=== PATIENT | male | born 1960 | race African-American/Black ===

== ENCOUNTER 2024-10-16 03:32 | Inpatient (IN) | payer OTHER ==
[2024-10-16] MEDS ORDERED: Aspirin Chewable 81 MG TAB ONE (06:12)
[2024-10-16 06:34] LABS: #Basophils Less than 0.03 10x3/uL (0.0-0.2); #Eosinophils 0.25 10x3/uL (0.0-0.7); #Monocytes 0.58 10x3/uL (0.11-0.59); #Neutrophils 5.40 10x3/uL (1.40-6.50); %Basophils 0.1 % (0.0-1.0); %Eosinophils 3.3 % (0.0-10.0); %Lymphocytes 16.4 % (21.0-51.0); %Monocytes 7.7 % (0.0-10.0); %Neutrophils 72.2 % (42.0-75.0); Hematocrit 41.5 % (42.0-52.0); Hemoglobin 14.0 g/dL (14.0-18.0); Mean Corpuscular Hemoglobin 32.2 pg (27.0-31.0); Mean Corpuscular Volume 95.4 fL (78.0-98.0); Platelet Count 225 10x3/uL (130-400); Red Blood Cell (RBC) Count 4.35 mill/uL (4.70-6.10); White Blood Cell (WBC) Count 7.49 10x3/uL (4.8-10.8)
[2024-10-16 06:54] LABS: ALT (SGPT) 57 U/L (Less than 45); AST (SGOT) 51 U/L (11-34); Albumin 3.0 g/dL (3.1-4.5); Alkaline Phosphatase 71 U/L (40-110); Anion Gap 9 mmol/L (10-20); BUN (Urea Nitrogen) 11 mg/dL (8.4-25.7); Bilirubin, Total 1.0 mg/dL (0.3-1.2); Calc. Creatinine Clearance 0 mL/min (70-130); Calcium 8.1 mg/dL (7.8-10.44); Carbon Dioxide 22 mmol/L (23-31); Chloride 111 mmol/L (98-107); Globulin 3.9 g/dL (2.4-3.5); Glucose 116 mg/dL (80-115); Potassium 4.4 mmol/L (3.5-5.1); Sodium 138 mmol/L (136-145)
[2024-10-16 07:00] LABS: Troponin I 0.015 ng/mL (< 0.028)
[2024-10-16] MEDS ORDERED: Furosemide 40 MG (4 mL) VIAL ONE (07:03)
[2024-10-16] MEDS ORDERED: Acetaminophen 325 MG TAB PO PRN (09:15)
[2024-10-16] MEDS ORDERED: Ondansetron PF 4 MG/2 ML Vial IVP PRN (09:16)
[2024-10-16 09:44] VITALS: BMI 18.3
[2024-10-16] MEDS ORDERED: Melatonin 3 MG TAB PO PRN (09:44)
[2024-10-16] MEDS ORDERED: Calcium Carbonate 500 MG ChewTAB PO PRN (09:44)
[2024-10-16] MEDS: Spironolactone 25 MG TAB PO SCH (10:02)
[2024-10-16] MEDS: Apixaban 5 MG TAB PO SCH ×2 (10:02→20:10)
[2024-10-16 10:39] LABS: Troponin I 0.022 ng/mL (< 0.028)
[2024-10-16] MEDS: Furosemide 40 MG (4 mL) VIAL SLOW IVP SCH (15:03)
[2024-10-16 15:33] LABS: Cocaine Metabolite Screen PRELIM POSITIVE (Negative); THC/Cannabinoid Screen PRELIM POSITIVE (Negative); Tricyclic Screen Negative (Negative)
[2024-10-16] MEDS: Carvedilol 3.125 MG TAB PO SCH (17:55)
[2024-10-17 04:43] LABS: #Basophils Less than 0.03 10x3/uL (0.0-0.2); #Eosinophils 0.25 10x3/uL (0.0-0.7); #Monocytes 0.67 10x3/uL (0.11-0.59); #Neutrophils 4.43 10x3/uL (1.40-6.50); %Basophils 0.3 % (0.0-1.0); %Eosinophils 3.6 % (0.0-10.0); %Lymphocytes 22.8 % (21.0-51.0); %Monocytes 9.6 % (0.0-10.0); %Neutrophils 63.4 % (42.0-75.0); Hematocrit 44.7 % (42.0-52.0); Hemoglobin 15.3 g/dL (14.0-18.0); Mean Corpuscular Hemoglobin 32.0 pg (27.0-31.0); Mean Corpuscular Volume 93.5 fL (78.0-98.0); Platelet Count 246 10x3/uL (130-400); Red Blood Cell (RBC) Count 4.78 mill/uL (4.70-6.10); White Blood Cell (WBC) Count 6.98 10x3/uL (4.8-10.8)
[2024-10-17 05:03] LABS: Anion Gap 13 mmol/L (10-20); BUN (Urea Nitrogen) 18 mg/dL (8.4-25.7); Calc. Creatinine Clearance 78 mL/min (70-130); Calcium 8.6 mg/dL (7.8-10.44); Carbon Dioxide 22 mmol/L (23-31); Chloride 104 mmol/L (98-107); Glucose 101 mg/dL (80-115); Potassium 3.7 mmol/L (3.5-5.1); Sodium 135 mmol/L (136-145)
[2024-10-17] MEDS: Aspirin Chewable 81 MG TAB PO SCH (07:57)
[2024-10-17] MEDS: Acetaminophen 500 MG TAB PO PRN (07:57)
[2024-10-17] MEDS: Spironolactone 25 MG TAB PO SCH (07:57)
[2024-10-17] MEDS: Senokot S 8.6-50 MG TAB PO PRN (09:53)
[2024-10-18 05:33] LABS: #Basophils 0.04 10x3/uL (0.0-0.2); #Eosinophils 0.33 10x3/uL (0.0-0.7); #Monocytes 0.73 10x3/uL (0.11-0.59); #Neutrophils 3.49 10x3/uL (1.40-6.50); %Basophils 0.6 % (0.0-1.0); %Eosinophils 5.3 % (0.0-10.0); %Lymphocytes 26.2 % (21.0-51.0); %Monocytes 11.7 % (0.0-10.0); %Neutrophils 55.9 % (42.0-75.0); Hematocrit 45.1 % (42.0-52.0); Hemoglobin 15.8 g/dL (14.0-18.0); Mean Corpuscular Hemoglobin 32.4 pg (27.0-31.0); Mean Corpuscular Volume 92.6 fL (78.0-98.0); Platelet Count 254 10x3/uL (130-400); Red Blood Cell (RBC) Count 4.87 mill/uL (4.70-6.10); White Blood Cell (WBC) Count 6.25 10x3/uL (4.8-10.8)
[2024-10-18 05:58] LABS: Anion Gap 14 mmol/L (10-20); BUN (Urea Nitrogen) 25 mg/dL (8.4-25.7); Calc. Creatinine Clearance 66 mL/min (70-130); Calcium 8.8 mg/dL (7.8-10.44); Carbon Dioxide 23 mmol/L (23-31); Chloride 102 mmol/L (98-107); Glucose 121 mg/dL (80-115); Potassium 3.9 mmol/L (3.5-5.1); Sodium 135 mmol/L (136-145)
[2024-10-18] MEDS: Losartan 25 MG TAB PO SCH (08:42)
[2024-10-18 09:50] VITALS: BMI 16.5
[2024-10-19 05:07] LABS: #Basophils 0.03 10x3/uL (0.0-0.2); #Eosinophils 0.32 10x3/uL (0.0-0.7); #Monocytes 0.79 10x3/uL (0.11-0.59); #Neutrophils 3.48 10x3/uL (1.40-6.50); %Basophils 0.5 % (0.0-1.0); %Eosinophils 5.1 % (0.0-10.0); %Lymphocytes 25.8 % (21.0-51.0); %Monocytes 12.6 % (0.0-10.0); %Neutrophils 55.5 % (42.0-75.0); Hematocrit 45.9 % (42.0-52.0); Hemoglobin 15.4 g/dL (14.0-18.0); Mean Corpuscular Hemoglobin 32.2 pg (27.0-31.0); Mean Corpuscular Volume 95.8 fL (78.0-98.0); Platelet Count 200 10x3/uL (130-400); Red Blood Cell (RBC) Count 4.79 mill/uL (4.70-6.10); White Blood Cell (WBC) Count 6.27 10x3/uL (4.8-10.8)
[2024-10-19 05:29] LABS: Anion Gap 14 mmol/L (10-20); BUN (Urea Nitrogen) 27 mg/dL (8.4-25.7); Calc. Creatinine Clearance 57 mL/min (70-130); Calcium 8.8 mg/dL (7.8-10.44); Carbon Dioxide 21 mmol/L (23-31); Chloride 100 mmol/L (98-107); Glucose 136 mg/dL (80-115); Potassium 4.3 mmol/L (3.5-5.1); Sodium 131 mmol/L (136-145)
[2024-10-19 07:41] VITALS: TEMP 97.9
[2024-10-19 10:21] VITALS: BP 124/59
== END 2024-10-19 11:11 | disposition home or self-care (01) | DRG 291 ==
LOC: ERS 03:32 → OBS 09:09
PROVIDERS: ADMIT Hospitalist; ATTEND Internal Medicine
DX: I11.0 Hypertensive heart disease with heart failure (principal); E43 Unspecified severe protein-calorie malnutrition; I50.43 Acute on chronic combined systolic (congestive) and diastolic (congestive) heart failure; Z68.1 Body mass index [BMI] 19.9 or less, adult; J44.9 Chronic obstructive pulmonary disease, unspecified; E78.5 Hyperlipidemia, unspecified; F19.10 Other psychoactive substance abuse, uncomplicated; Z79.01 Long term (current) use of anticoagulants; Z90.49 Acquired absence of other specified parts of digestive tract; Z98.890 Other specified postprocedural states; F17.210 Nicotine dependence, cigarettes, uncomplicated; I42.9 Cardiomyopathy, unspecified; Z95.810 Presence of automatic (implantable) cardiac defibrillator; E88.09 Other disorders of plasma-protein metabolism, not elsewhere classified
CPT/HCPCS: 36415; 71045; 80048; 80053; 80306; 83880; 84484; 85025; 93005; 93798; 96374; J1940

== ENCOUNTER 2024-11-30 02:05 | Inpatient (IN) | payer OTHER ==
[2024-11-30 02:53] LABS: #Basophils Less than 0.03 10x3/uL (0.0-0.2); #Eosinophils 0.07 10x3/uL (0.0-0.7); #Monocytes 0.68 10x3/uL (0.11-0.59); #Neutrophils 7.81 10x3/uL (1.40-6.50); %Basophils 0.2 % (0.0-1.0); %Eosinophils 0.7 % (0.0-10.0); %Lymphocytes 9.5 % (21.0-51.0); %Monocytes 7.1 % (0.0-10.0); %Neutrophils 82.0 % (42.0-75.0); Hematocrit 42.9 % (42.0-52.0); Hemoglobin 13.9 g/dL (14.0-18.0); Mean Corpuscular Hemoglobin 32.2 pg (27.0-31.0); Mean Corpuscular Volume 99.3 fL (78.0-98.0); Platelet Count 220 10x3/uL (130-400); Red Blood Cell (RBC) Count 4.32 mill/uL (4.70-6.10); White Blood Cell (WBC) Count 9.54 10x3/uL (4.8-10.8)
[2024-11-30 03:16] LABS: ALT (SGPT) 47 U/L (Less than 45); AST (SGOT) 50 U/L (11-34); Albumin 3.5 g/dL (3.1-4.5); Alkaline Phosphatase 72 U/L (40-110); Anion Gap 14 mmol/L (10-20); BUN (Urea Nitrogen) 15 mg/dL (8.4-25.7); Bilirubin, Total 1.3 mg/dL (0.3-1.2); Calc. Creatinine Clearance 0 mL/min (70-130); Calcium 9.1 mg/dL (7.8-10.44); Carbon Dioxide 21 mmol/L (23-31); Chloride 106 mmol/L (98-107); Globulin 3.8 g/dL (2.4-3.5); Glucose 107 mg/dL (80-115); Lipase 8 U/L (8-78); Potassium 4.6 mmol/L (3.5-5.1); Sodium 136 mmol/L (136-145)
[2024-11-30] MEDS ORDERED: Ondansetron PF 4 MG/2 ML Vial IVP PRN (04:45)
[2024-11-30] MEDS ORDERED: Electrolyte Replacement Protocol 1 EACH FS PRN (04:45)
[2024-11-30] MEDS ORDERED: Acetaminophen 325 MG TAB PO PRN (04:45)
[2024-11-30] MEDS ORDERED: Calcium Carbonate 500 MG ChewTAB PO PRN (04:45)
[2024-11-30] MEDS ORDERED: Albuterol 200 PUFF INH INH PRN (04:46)
[2024-11-30] MEDS ORDERED: Furosemide 20 MG (2 mL) VIAL ONE (05:08)
[2024-11-30] MEDS: Furosemide 40 MG (4 mL) VIAL SLOW IVP SCH (07:17)
[2024-11-30 08:34] LABS: Cocaine Metabolite Screen PRELIM POSITIVE (Negative); THC/Cannabinoid Screen Negative (Negative); Tricyclic Screen Negative (Negative)
[2024-11-30] MEDS: Aspirin Chewable 81 MG TAB PO SCH (08:48)
[2024-11-30] MEDS: Spironolactone 25 MG TAB PO SCH (08:48)
[2024-11-30] MEDS: Apixaban 5 MG TAB PO SCH (08:49)
[2024-11-30] MEDS: Carvedilol 3.125 MG TAB PO SCH (08:49)
[2024-11-30] MEDS: Losartan 25 MG TAB PO SCH (08:49)
[2024-11-30] MEDS: PNEUMOC 20-VAL CONJ-DIP CRM/PF 0.5 ML SYRINGE IM ONE (09:27)
[2024-11-30] MEDS: LevoFLOXacin 750 mg/D5W 750 MG in Premix 1 BAG IVPB SCH (09:38)
[2024-11-30] MEDS ORDERED: Iopamidol-370 76% 500 ML MDV (1 ML CHARGE) ONE (14:41)
[2024-12-01 04:21] LABS: #Basophils Less than 0.03 10x3/uL (0.0-0.2); #Eosinophils 0.19 10x3/uL (0.0-0.7); #Monocytes 0.72 10x3/uL (0.11-0.59); #Neutrophils 5.26 10x3/uL (1.40-6.50); %Basophils 0.3 % (0.0-1.0); %Eosinophils 2.4 % (0.0-10.0); %Lymphocytes 20.3 % (21.0-51.0); %Monocytes 9.2 % (0.0-10.0); %Neutrophils 67.4 % (42.0-75.0); Hematocrit 49.1 % (42.0-52.0); Hemoglobin 16.5 g/dL (14.0-18.0); Mean Corpuscular Hemoglobin 32.0 pg (27.0-31.0); Mean Corpuscular Volume 95.2 fL (78.0-98.0); Platelet Count 181 10x3/uL (130-400); Red Blood Cell (RBC) Count 5.16 mill/uL (4.70-6.10); White Blood Cell (WBC) Count 7.80 10x3/uL (4.8-10.8)
[2024-12-01 04:53] LABS: ALT (SGPT) 41 U/L (Less than 45); AST (SGOT) 48 U/L (11-34); Albumin 3.1 g/dL (3.1-4.5); Alkaline Phosphatase 60 U/L (40-110); Anion Gap 13 mmol/L (10-20); BUN (Urea Nitrogen) 21 mg/dL (8.4-25.7); Bilirubin, Total 1.6 mg/dL (0.3-1.2); Calc. Creatinine Clearance 56 mL/min (70-130); Calcium 9.5 mg/dL (7.8-10.44); Carbon Dioxide 25 mmol/L (23-31); Chloride 99 mmol/L (98-107); Globulin 4.3 g/dL (2.4-3.5); Glucose 112 mg/dL (80-115); Magnesium 2.2 mg/dL (1.6-2.6); Potassium 3.7 mmol/L (3.5-5.1); Sodium 133 mmol/L (136-145)
[2024-12-01] MEDS: predniSONE 20 MG TAB PO SCH (15:51)
[2024-12-01] MEDS ORDERED: Carvedilol 3.125 MG TAB PO SCH (17:00)
[2024-12-02 04:57] LABS: #Basophils Less than 0.03 10x3/uL (0.0-0.2); #Eosinophils Less than 0.03 10x3/uL (0.0-0.7); #Monocytes 0.58 10x3/uL (0.11-0.59); #Neutrophils 6.47 10x3/uL (1.40-6.50); %Basophils 0.1 % (0.0-1.0); %Eosinophils 0.0 % (0.0-10.0); %Lymphocytes 10.2 % (21.0-51.0); %Monocytes 7.3 % (0.0-10.0); %Neutrophils 81.9 % (42.0-75.0); Hematocrit 42.6 % (42.0-52.0); Hemoglobin 14.3 g/dL (14.0-18.0); Mean Corpuscular Hemoglobin 32.4 pg (27.0-31.0); Mean Corpuscular Volume 96.4 fL (78.0-98.0); Platelet Count 265 10x3/uL (130-400); Red Blood Cell (RBC) Count 4.42 mill/uL (4.70-6.10); White Blood Cell (WBC) Count 7.91 10x3/uL (4.8-10.8)
[2024-12-02 05:15] LABS: Anion Gap 13 mmol/L (10-20); BUN (Urea Nitrogen) 31 mg/dL (8.4-25.7); Calc. Creatinine Clearance 59 mL/min (70-130); Calcium 9.2 mg/dL (7.8-10.44); Carbon Dioxide 22 mmol/L (23-31); Chloride 106 mmol/L (98-107); Glucose 111 mg/dL (80-115); Potassium 4.0 mmol/L (3.5-5.1); Sodium 137 mmol/L (136-145)
[2024-12-02] MEDS: predniSONE 20 MG TAB PO SCH (08:02)
[2024-12-02] MEDS: Carvedilol 3.125 MG TAB PO SCH (15:50)
[2024-12-02] MEDS: Senokot S 8.6-50 MG TAB PO PRN (21:40)
[2024-12-03 04:46] LABS: #Basophils Less than 0.03 10x3/uL (0.0-0.2); #Eosinophils 0.05 10x3/uL (0.0-0.7); #Monocytes 1.08 10x3/uL (0.11-0.59); #Neutrophils 9.64 10x3/uL (1.40-6.50); %Basophils 0.2 % (0.0-1.0); %Eosinophils 0.4 % (0.0-10.0); %Lymphocytes 14.1 % (21.0-51.0); %Monocytes 8.6 % (0.0-10.0); %Neutrophils 76.3 % (42.0-75.0); Hematocrit 43.6 % (42.0-52.0); Hemoglobin 14.9 g/dL (14.0-18.0); Mean Corpuscular Hemoglobin 31.7 pg (27.0-31.0); Mean Corpuscular Volume 92.8 fL (78.0-98.0); Platelet Count 290 10x3/uL (130-400); Red Blood Cell (RBC) Count 4.70 mill/uL (4.70-6.10); White Blood Cell (WBC) Count 12.62 10x3/uL (4.8-10.8)
[2024-12-03 05:05] LABS: Anion Gap 15 mmol/L (10-20); BUN (Urea Nitrogen) 23 mg/dL (8.4-25.7); Calc. Creatinine Clearance 67 mL/min (70-130); Calcium 8.7 mg/dL (7.8-10.44); Carbon Dioxide 24 mmol/L (23-31); Chloride 100 mmol/L (98-107); Glucose 121 mg/dL (80-115); Magnesium 2.2 mg/dL (1.6-2.6); Potassium 3.6 mmol/L (3.5-5.1); Sodium 135 mmol/L (136-145)
[2024-12-04 04:43] LABS: #Basophils 0.03 10x3/uL (0.0-0.2); #Eosinophils 0.03 10x3/uL (0.0-0.7); #Monocytes 0.82 10x3/uL (0.11-0.59); #Neutrophils 7.78 10x3/uL (1.40-6.50); %Basophils 0.3 % (0.0-1.0); %Eosinophils 0.3 % (0.0-10.0); %Lymphocytes 16.8 % (21.0-51.0); %Monocytes 7.8 % (0.0-10.0); %Neutrophils 74.2 % (42.0-75.0); Hematocrit 42.7 % (42.0-52.0); Hemoglobin 13.9 g/dL (14.0-18.0); Mean Corpuscular Hemoglobin 31.6 pg (27.0-31.0); Mean Corpuscular Volume 97.0 fL (78.0-98.0); Platelet Count 302 10x3/uL (130-400); Red Blood Cell (RBC) Count 4.40 mill/uL (4.70-6.10); White Blood Cell (WBC) Count 10.48 10x3/uL (4.8-10.8)
[2024-12-04 05:14] LABS: Anion Gap 11 mmol/L (10-20); BUN (Urea Nitrogen) 24 mg/dL (8.4-25.7); Calc. Creatinine Clearance 67 mL/min (70-130); Calcium 8.5 mg/dL (7.8-10.44); Carbon Dioxide 24 mmol/L (23-31); Chloride 103 mmol/L (98-107); Glucose 104 mg/dL (80-115); Magnesium 2.2 mg/dL (1.6-2.6); Potassium 4.0 mmol/L (3.5-5.1); Sodium 134 mmol/L (136-145)
[2024-12-04 10:56] VITALS: BP 101/61; TEMP 97.6
== END 2024-12-04 13:23 | disposition home or self-care (01) | DRG 291 ==
LOC: ERS 02:05 → 2NO 04:47
PROVIDERS: ADMIT Student in an Organized Health Care Education/Training Program; ATTEND Internal Medicine
DX: I11.0 Hypertensive heart disease with heart failure (principal); I50.23 Acute on chronic systolic (congestive) heart failure; J96.01 Acute respiratory failure with hypoxia; J18.9 Pneumonia, unspecified organism; Z68.1 Body mass index [BMI] 19.9 or less, adult; F14.20 Cocaine dependence, uncomplicated; F17.210 Nicotine dependence, cigarettes, uncomplicated; Z96.653 Presence of artificial knee joint, bilateral; E78.5 Hyperlipidemia, unspecified; I42.9 Cardiomyopathy, unspecified; R63.6 Underweight; Z88.1 Allergy status to other antibiotic agents; Z95.810 Presence of automatic (implantable) cardiac defibrillator; Z90.49 Acquired absence of other specified parts of digestive tract; Z98.890 Other specified postprocedural states; Z79.82 Long term (current) use of aspirin; Z79.899 Other long term (current) drug therapy
CPT/HCPCS: 36415; 71045; 71275; 80048; 80053; 80306; 83690; 83735; 83880; 84484; 85025; 86141; 90471; 90677; 93005; 93306; 93798; 96374; G0009; J1940; J1956; J7030; J7512; Q9967

== ENCOUNTER 2025-02-06 02:57 | Inpatient (IN) | payer OTHER ==
[2025-02-06] MEDS ORDERED: Aspirin Chewable 81 MG TAB ONE (03:25)
[2025-02-06 03:28] LABS: #Basophils Less than 0.03 10x3/uL (0.0-0.2); #Eosinophils 0.19 10x3/uL (0.0-0.7); #Monocytes 0.66 10x3/uL (0.11-0.59); #Neutrophils 4.30 10x3/uL (1.40-6.50); %Basophils 0.3 % (0.0-1.0); %Eosinophils 2.8 % (0.0-10.0); %Lymphocytes 23.6 % (21.0-51.0); %Monocytes 9.7 % (0.0-10.0); %Neutrophils 63.2 % (42.0-75.0); Hematocrit 41.1 % (42.0-52.0); Hemoglobin 13.4 g/dL (14.0-18.0); Mean Corpuscular Hemoglobin 31.5 pg (27.0-31.0); Mean Corpuscular Volume 96.7 fL (78.0-98.0); Platelet Count 200 10x3/uL (130-400); Red Blood Cell (RBC) Count 4.25 mill/uL (4.70-6.10); White Blood Cell (WBC) Count 6.81 10x3/uL (4.8-10.8)
[2025-02-06 03:47] LABS: ALT (SGPT) 75 U/L (Less than 45); AST (SGOT) 69 U/L (11-34); Albumin 3.0 g/dL (3.1-4.5); Alkaline Phosphatase 93 U/L (40-110); Anion Gap 10 mmol/L (10-20); BUN (Urea Nitrogen) 8 mg/dL (8.4-25.7); Bilirubin, Total 0.7 mg/dL (0.3-1.2); Calc. Creatinine Clearance 0 mL/min (70-130); Calcium 7.8 mg/dL (7.8-10.44); Carbon Dioxide 21 mmol/L (23-31); Chloride 114 mmol/L (98-107); Globulin 3.1 g/dL (2.4-3.5); Glucose 123 mg/dL (80-115); Potassium 3.7 mmol/L (3.5-5.1); Sodium 141 mmol/L (136-145)
[2025-02-06] MEDS ORDERED: Furosemide 40 MG (4 mL) VIAL ONE (04:39)
[2025-02-06] MEDS ORDERED: Senokot S 8.6-50 MG TAB PO PRN (05:40)
[2025-02-06] MEDS ORDERED: Ondansetron PF 4 MG/2 ML Vial IVP PRN (05:40)
[2025-02-06] MEDS ORDERED: Calcium Carbonate 500 MG ChewTAB PO PRN (05:40)
[2025-02-06] MEDS ORDERED: Melatonin 3 MG TAB PO PRN (05:40)
[2025-02-06] MEDS ORDERED: Bisacodyl 10 MG SUPP PR PRN (05:40)
[2025-02-06] MEDS ORDERED: Acetaminophen 325 MG TAB PO PRN (05:40)
[2025-02-06] MEDS ORDERED: Electrolyte Replacement Protocol 1 EACH FS SCH (05:45)
[2025-02-06] MEDS ORDERED: Potassium Chloride 20 MEQ in Premix 1 BAG IVPB PRN (06:15)
[2025-02-06] MEDS ORDERED: PHOS-NAK 1 PKT PACK PO PRN (06:15)
[2025-02-06] MEDS ORDERED: Magnesium 2 GM/50 ML(in water) 2 GM in Premix 1 BAG IVPB PRN (06:15)
[2025-02-06] MEDS: Lisinopril 2.5 MG TAB PO SCH (10:02)
[2025-02-06] MEDS: Spironolactone 25 MG TAB PO SCH (10:03)
[2025-02-06] MEDS: Apixaban 5 MG TAB PO SCH (10:03)
[2025-02-06] MEDS: Carvedilol 6.25 MG TAB PO SCH (10:03)
[2025-02-06 12:06] VITALS: BMI 17.7
[2025-02-06] MEDS ORDERED: Albuterol 2.5 MG (3 mL) NEB NEB PRN (12:28)
[2025-02-06] MEDS: Benzonatate 100 MG CAP PO PRN (12:57)
[2025-02-06] MEDS: Furosemide 40 MG (4 mL) VIAL SLOW IVP SCH (13:01)
[2025-02-06 13:41] LABS: Cocaine Metabolite Screen PRELIM POSITIVE (Negative); THC/Cannabinoid Screen PRELIM POSITIVE (Negative); Tricyclic Screen Negative (Negative)
[2025-02-06 21:05] LABS: Magnesium 2.5 mg/dL (1.6-2.6)
[2025-02-07 05:41] LABS: #Basophils Less than 0.03 10x3/uL (0.0-0.2); #Eosinophils 0.14 10x3/uL (0.0-0.7); #Monocytes 0.81 10x3/uL (0.11-0.59); #Neutrophils 4.79 10x3/uL (1.40-6.50); %Basophils 0.3 % (0.0-1.0); %Eosinophils 1.9 % (0.0-10.0); %Lymphocytes 22.5 % (21.0-51.0); %Monocytes 10.8 % (0.0-10.0); %Neutrophils 64.1 % (42.0-75.0); Hematocrit 49.2 % (42.0-52.0); Hemoglobin 16.4 g/dL (14.0-18.0); Mean Corpuscular Hemoglobin 31.7 pg (27.0-31.0); Mean Corpuscular Volume 95.2 fL (78.0-98.0); Platelet Count 230 10x3/uL (130-400); Red Blood Cell (RBC) Count 5.17 mill/uL (4.70-6.10); White Blood Cell (WBC) Count 7.47 10x3/uL (4.8-10.8)
[2025-02-07 05:45] LABS: ALT (SGPT) 76 U/L (Less than 45); AST (SGOT) 60 U/L (11-34); Albumin 3.2 g/dL (3.1-4.5); Alkaline Phosphatase 70 U/L (40-110); Anion Gap 15 mmol/L (10-20); BUN (Urea Nitrogen) 16 mg/dL (8.4-25.7); Bilirubin, Total 1.7 mg/dL (0.3-1.2); Calc. Creatinine Clearance 72 mL/min (70-130); Calcium 8.9 mg/dL (7.8-10.44); Carbon Dioxide 22 mmol/L (23-31); Chloride 107 mmol/L (98-107); Globulin 3.5 g/dL (2.4-3.5); Glucose 129 mg/dL (80-115); Potassium 3.9 mmol/L (3.5-5.1); Sodium 140 mmol/L (136-145)
[2025-02-07] MEDS: Aspirin Chewable 81 MG TAB PO SCH (09:11)
[2025-02-07] MEDS: Guaifenesin DM 100-10/5 ML UDCUP PO PRN (09:27)
[2025-02-07] MEDS: Carvedilol 6.25 MG TAB PO SCH (09:32)
[2025-02-07 16:14] VITALS: BMI 16.8
[2025-02-08 05:19] LABS: #Basophils 0.03 10x3/uL (0.0-0.2); #Eosinophils 0.23 10x3/uL (0.0-0.7); #Monocytes 0.94 10x3/uL (0.11-0.59); #Neutrophils 3.43 10x3/uL (1.40-6.50); %Basophils 0.5 % (0.0-1.0); %Eosinophils 3.6 % (0.0-10.0); %Lymphocytes 26.1 % (21.0-51.0); %Monocytes 14.9 % (0.0-10.0); %Neutrophils 54.4 % (42.0-75.0); Anion Gap 12 mmol/L (10-20); BUN (Urea Nitrogen) 26 mg/dL (8.4-25.7); Calc. Creatinine Clearance 71 mL/min (70-130); Calcium 9.2 mg/dL (7.8-10.44); Carbon Dioxide 27 mmol/L (23-31); Chloride 105 mmol/L (98-107); Glucose 155 mg/dL (80-115); Hematocrit 48.2 % (42.0-52.0); Hemoglobin 16.3 g/dL (14.0-18.0); Mean Corpuscular Hemoglobin 31.8 pg (27.0-31.0); Mean Corpuscular Volume 94.0 fL (78.0-98.0); Platelet Count 247 10x3/uL (130-400); Potassium 3.7 mmol/L (3.5-5.1); Red Blood Cell (RBC) Count 5.13 mill/uL (4.70-6.10); Sodium 140 mmol/L (136-145); White Blood Cell (WBC) Count 6.31 10x3/uL (4.8-10.8)
[2025-02-09] MEDS: Carvedilol 6.25 MG TAB PO SCH (09:31)
[2025-02-09] MEDS: Spironolactone 25 MG TAB PO SCH (09:32)
[2025-02-09 16:46] VITALS: BP 119/81; TEMP 98.8
== END 2025-02-09 17:33 | disposition home or self-care (01) | DRG 291 ==
LOC: ERS 02:57 → ERHOLD 05:08 → OBS 08:33 → OBSVTOIN 02-07 09:20
PROVIDERS: ADMIT Internal Medicine; ATTEND Family Medicine
DX: I11.0 Hypertensive heart disease with heart failure (principal); I50.23 Acute on chronic systolic (congestive) heart failure; J44.9 Chronic obstructive pulmonary disease, unspecified; E78.5 Hyperlipidemia, unspecified; I42.8 Other cardiomyopathies; F17.210 Nicotine dependence, cigarettes, uncomplicated; B19.20 Unspecified viral hepatitis C without hepatic coma; F14.10 Cocaine abuse, uncomplicated; Z90.49 Acquired absence of other specified parts of digestive tract; Z98.890 Other specified postprocedural states; Z95.810 Presence of automatic (implantable) cardiac defibrillator; Z91.199 Patient's noncompliance with other medical treatment and regimen due to unspecified reason; Z88.1 Allergy status to other antibiotic agents; Z79.82 Long term (current) use of aspirin; Z79.899 Other long term (current) drug therapy
CPT/HCPCS: 36415; 71045; 80048; 80053; 80306; 83735; 83880; 84484; 85025; 93005; 93798; 96374; 96376; 97139; G0378; J1940